=== PATIENT | female | born 1965 ===

== ENCOUNTER → 2025-05-13 07:32 | Outpatient (CLI) | payer OTHER ==
[~2025-05-13 07:32] MED LIST: CANDESARTAN CILE8 MG; CLONAZEPAM2 MG; EXEDRIN; METOCLOPRAMIDE H5 MG PO; VITAMIN C500 M6 PO; VITAMIN D
[2025-05-13 08:53] LABS: URINE APPEARANCE Clear; URINE BILIRRUBIN Negative (NEGATIVE); URINE BLOOD Negative; URINE COLOR Yellow; URINE GLUCOSE Negative (NEGATIVE); URINE KETONE Negative (NEGATIVE); URINE LEUKOCYTE Negative; URINE NITRATE Negative; URINE PROTEIN Negative (NEGATIVE); URINE UROBILINOGEN 0.2 E.U./dl
[2025-05-13 08:57] LABS: URINE BACTERIA 10.7 uL (0.0-1933); URINE RBC 3.2 uL (0.0-20.8); URINE WBC 2.4 uL (0.0-23.2)
[2025-05-13 08:58] LABS: BASO % 0.4 % (0.1-1.2); EOS # 0.07 (0.04-0.54); EOS % 1.3 % (0.7-7.0); LYMPH # 1.34 (1.18-3.74); LYMPH % 24.1 % (19.3-53.1); MEAN PLATELET VOLUME 9.30 fl (9.4-12.4); MONO # 0.40 (0.24-0.82); MONO % 7.2 % (4.7-12.5); NEUT # 3.72 (1.56-6.13); NEUT % 66.6 % (34.0-71.1); RED CELL DISTRIBUTION WIDTH 13.3 % (11.6-14.4)
[2025-05-13 09:23] LABS: ALT/SGPT 35.0 U/L (12-78); AST/SGOT 12.0 U/L (15-37); BILIRUBIN TOTAL 0.85 mg/dL (0.3-1.2); BILIRUBIN,CONJUGATED 0.25 mg/dL (0.0-0.2); BUN CREA RATIO 16.0 (7.0-25.0); CREATININE SERUM 0.85 mg/dL (0.55-1.02); GFR 68.22; GLOBULINA 3.0 G/DL (2.4-3.5); GLUCOSE FASTING 100.0 mg/dL (65-100); OSMOLALITY SERUM 287.0 MOSM/KG (275-295)
[2025-05-13 09:31] LABS: INR 0.95
[2025-05-13 09:51] LABS: URINE CAST 0.14 uL (0.0-1.40); URINE EPITHELIAL CELLS 0.9 uL (0.0-38.8)
== END | disposition home or self-care (01) ==
LOC: LAB 07:32
PROVIDERS: ATTEND Surgery
DX: K81.1 Chronic cholecystitis (principal); R14.0 Abdominal distension (gaseous)